=== PATIENT | female | born 1955 ===

== ENCOUNTER 2024-01-21 16:14 | Outpatient (REF) | payer MEDICARE, SELFPAY ==
[2024-01-21 21:08] LABS: HCT 40.4 % (36.0-46.0); HGB 13.3 g/dL (11.2-15.7); MCH 31.6 pg (27.0-33.0); MCHC 32.9 % (32.0-36.0); MCV 96 fL (80-95); Platelet Count 248 10^3/uL (130-400); RBC 4.21 10^6/uL (3.93-5.22); RDW 12.6 % (11.7-14.6); RDW-SD 44.7 fL; WBC 6.42 10^3/uL (4.4-10.8)
[2024-01-21 21:33] LABS: ALT 25 U/L (14-59); AST 20 U/L (15-37); Albumin 4.1 g/dL (3.4-5.0); Anion Gap 7.3 mmol/L (3-11); BUN 11 mg/dL (7-18); CO2 27.7 mmol/L (21.0-32.0); CREATININE 0.8 mg/dL (0.55-1.02); Calculated LDL 127 mg/dL (<100); Chloride 107 mmol/L (98-107); Cholesterol 234 mg/dL (<200); Estimated GFR 80.71 (mL/min/1.73m2); Glucose 93 mg/dL (74-106); HDL Cholesterol 95 mg/dL (40-60); Potassium 3.7 mmol/L (3.5-5.1); Sodium 142 mmol/L (136-145); TSH 1.28 uIU/Ml (0.36-3.74); Total Protein 7.3 g/dL (6.4-8.2); Triglyceride 62 mg/dL (<150)
[2024-01-21 21:52] LABS: Alkaline Phosphatase 78 U/L (46-116); Calcium 9.3 mg/dL (8.5-10.1)
== END 2024-01-21 16:15 | disposition home or self-care (01) ==
LOC: NCHCN 16:14
PROVIDERS: Visit Provider Internal Medicine
DX: E03.9 Hypothyroidism, unspecified (principal); R03.0 Elevated blood-pressure reading, without diagnosis of hypertension; Z13.0 Encounter for screening for diseases of the blood and blood-forming organs and certain disorders involving the immune mechanism; Z13.220 Encounter for screening for lipoid disorders
CPT/HCPCS: 80053; 80061; 85027; 84443